=== PATIENT | female | born 1980 | race Hispanic/Latino ===

== ENCOUNTER 2022-02-02 06:02 | Inpatient (IN) | payer BC ==
[2022-01-27 16:40] LABS: BASOPHILS % (AUTO) 0.5 % (0.0-5.0); HEMATOCRIT 37.4 % (36-48); LYMPHOCYTES % (AUTO) 30.5 % (21.0-51.0); MEAN CORPUSCULAR HEMOGLOBIN 30.2 pg (27.0-33.0); MEAN CORPUSCULAR HGB CONC 32.6 g/dL (32.0-36.0); MEAN CORPUSCULAR VOLUME 92.6 fL (79-99); MONOCYTES % (AUTO) 5.9 % (3.0-13.0); PLATELET COUNT (AUTO) 304 K/uL (130-400); RED BLOOD CELL COUNT(AUTO) 4.04 MIL/uL (4.00-5.50); RED CELL DISTRIBUTION WIDTH 13.4 % (11.0-15.5); WHITE BLOOD COUNT (AUTO) 7.8 K/uL (4.8-10.8)
[2022-02-01 09:24] VITALS: BP 137/60
[2022-02-01 09:28] VITALS: BP 122/68
[2022-02-02] VITALS (24 sets, daily range): BP systolic 72–127; BP diastolic 54–81
[~2022-02-02] VITALS: Ht 167.6 cm; Wt 104.8 kg
[~2022-02-02 06:02] MED LIST: IBUP-2784 PO
[2022-02-02] MEDS ORDERED: LACTATED RINGERS 1000ML 1,000 ML IV ONE (06:13)
[2022-02-02] MEDS ORDERED: CEFAZOLIN SODIUM 1 GM VIAL ONE (06:13)
[2022-02-02] MEDS ORDERED: CALDOLOR 800MG+NS 250ML 250 ML IV SCH (06:30)
[2022-02-02] MEDS ORDERED: PHENYLEPHRINE HCL 10 MG/ML 1ML VIAL IV ONE (06:57)
[2022-02-02] MEDS ORDERED: MORPHINE PF 100MG/10ML AMP IV ONE (06:57)
[2022-02-02] MEDS ORDERED: FENTANYL CITRATE PF 50 MCG/1 ML 2ML VIAL ONE (06:59)
[2022-02-02] MEDS ORDERED: PROPOFOL 10 MG/ML 20ML VIAL IV ONE (06:59)
[2022-02-02] MEDS ORDERED: MIDAZOLAM HCL 1 MG/ML 2ML VIAL ONE (06:59)
[2022-02-02] MEDS ORDERED: GLYCOPYRROLATE 1 MG/5 ML SYRINGE ONE (07:00)
[2022-02-02] MEDS: CEFAZOLIN SODIUM 1 GM VIAL IVP SCH ×2 (07:00→07:48)
[2022-02-02] MEDS ORDERED: NEOSTIGMINE 5MG/5ML SYR IV ONE (07:00)
[2022-02-02] MEDS ORDERED: LACTATED RINGERS 1000ML 1,000 ML IV SCH (07:00)
[2022-02-02] MEDS ORDERED: LIDOCAINE PF 100MG/5ML (2%) SYRINGE 5ML ONE (07:00)
[2022-02-02] MEDS ORDERED: DEXAMETHASONE SOD PHOSPHATE 10MG/ML 1ML VIAL ONE (07:00)
[2022-02-02] MEDS ORDERED: ROCURONIUM 10MG/1ML SYR 10 MG/ML ML ONE (07:01)
[2022-02-02] MEDS ORDERED: ONDANSETRON 4MG INJ ONE ×2 (08:25→10:06)
[2022-02-02] MEDS ORDERED: METOCLOPRAMIDE 10 MG/2 ML VIAL ONE (10:15)
[2022-02-02] MEDS ORDERED: IBUPROFEN 600 MG TABLET PO PRN (11:00)
[2022-02-02] MEDS ORDERED: PROMETHAZINE HCL 25 MG/ML 1ML AMPULE IM PRN ×2 (11:00)
[2022-02-02] MEDS ORDERED: ONDANSETRON 4MG INJ IVP PRN (11:00)
[2022-02-02] MEDS ORDERED: ACETAMINOPHEN WITH CODEINE 1 TAB TAB PO PRN ×2 (11:00→17:00)
[2022-02-02] MEDS ORDERED: MEPERIDINE-PF 75 MG/ML SYG IM PRN (11:00)
[2022-02-02] MEDS ORDERED: BISACODYL 10 MG SUPP.RECT RC PRN ×2 (11:00→17:00)
[2022-02-02] MEDS ORDERED: SIMETHICONE 80 MG TAB.CHEW PO PRN (11:00)
[2022-02-02] MEDS ORDERED: DOCUSATE SODIUM 100 MG CAP PO PRN (11:00)
[2022-02-02] MEDS: DEXTROSE 5 %-0.45 % NACL 1,000 ML IV PRN ×2 (11:52→21:13)
[2022-02-02] MEDS ORDERED: HYDROCODONE/ACETAMINOPHEN 5/325 MG TAB PO PRN (17:00)
[2022-02-02] MEDS ORDERED: DIPH,PERTUSS(ACELL),TET VAC/PF 0.5 ML VIAL IM SCH (17:00)
[2022-02-02] MEDS ORDERED: IBUPROFEN 800 MG TAB PO PRN (17:00)
[2022-02-02] MEDS: CALDOLOR 800MG+NS 250ML 250 ML IV SCH (17:35)
[2022-02-03] MEDS: CALDOLOR 800MG+NS 250ML 250 ML IV SCH (01:56)
[2022-02-03 03:28] VITALS: BP 94/56
[2022-02-03] MEDS: DEXTROSE 5 %-0.45 % NACL 1,000 ML IV PRN (05:27)
[2022-02-03 07:16] VITALS: BP 97/53
[2022-02-03] MEDS ORDERED: IBUPROFEN 800 MG TAB PO SCH (09:00)
[2022-02-03] MEDS ORDERED: LIDOCAINE 5% TOPICAL PATCH TP SCH (09:00)
== END 2022-02-03 11:15 | disposition home or self-care (01) | DRG 743 ==
LOC: DAHIP 06:02 → WSH 10:45
PROVIDERS: ADMIT Obstetrics & Gynecology; ATTEND Obstetrics & Gynecology
PROC: 0UT90ZZ Resection of Uterus, Open Approach (ICD-10-PCS; principal; 2022-02-02 07:24)
PROC: 0UB70ZZ Excision of Bilateral Fallopian Tubes, Open Approach (ICD-10-PCS; 2022-02-02 07:24)
DX: D25.1 Intramural leiomyoma of uterus (principal); N92.1 Excessive and frequent menstruation with irregular cycle; Z20.822 Contact with and (suspected) exposure to COVID-19
CPT/HCPCS: 36415; 84703; 85025; 86850; 86900; 86901; 87426; A4344; G0378; J0690; J1100; J1741; J2001; J2250; J2274; J2370; J2405; J2550; J2704; J2710; J2765; J3010; J3490; J7120